=== PATIENT | female | born 1960 | race Caucasian/White ===

== ENCOUNTER 2020-12-06 08:49 | Inpatient (IN) | payer OTHER ==
[~2020-12-06] VITALS: Ht 152.4 cm; Wt 90.3 kg
[2020-12-06 09:23] LABS: HEMOGLOBIN 14.5 gm/dl (12.3-15.3); RED BLOOD COUNT 5.3 M/UL (4.00-5.10); WHITE BLOOD COUNT 14.3 K/UL (4.5-11.0)
[2020-12-06] MEDS ORDERED: BUMETANIDE2 MG PO (13:47)
[2020-12-06] MEDS ORDERED: TOPROL XL 25 MG25 MG PO (13:48)
[2020-12-06] MEDS ORDERED: LANTUS SOL100 UNIT/1 SC (14:41)
--- NOTE | 2020-12-07 04:22 | NUR ---
Pt has had no urinary output during shift. Pt states that they do not feel like they have to pee and refused to try. She said she hadnt been peeing much lately, maybe once a day.
[2020-12-07 05:19] LABS: HEMOGLOBIN 13.4 gm/dl (12.3-15.3); RED BLOOD COUNT 4.91 M/UL (4.00-5.10); WHITE BLOOD COUNT 12.4 K/UL (4.5-11.0)
[2020-12-07 09:14] LABS: HIV SCREEN 4TH GENERATION WRFX Non Reactive (Non Reactive)
[2020-12-07 12:14] LABS: HBSAG SCREEN Negative (Negative); HEP A AB, IGM Negative (Negative); HEP B CORE AB, IGM Negative (Negative); HEP C VIRUS AB 0.3 (0.0-0.9); HEPATITIS B SURF AB QUANT <3.1 mIU/mL (Immunity>9.9)
[2020-12-10 15:11] LABS: A/G RATIO 0.8 (0.7-1.7); ALBUMIN 2.8 g/dL (2.9-4.4); ALPHA-1-GLOBULIN 0.3 g/dL (0.0-0.4); ALPHA-2-GLOBULIN 1.1 g/dL (0.4-1.0); BETA GLOBULIN 1.6 g/dL (0.7-1.3); GAMMA GLOBULIN 0.9 g/dL (0.4-1.8); GLOBULIN, TOTAL 3.8 g/dL (2.2-3.9); IMMUNOGLOBULIN A, QN, SERUM 726 mg/dL (87-352); IMMUNOGLOBULIN G, QN, SERUM 915 mg/dL (586-1602); IMMUNOGLOBULIN M, QN, SERUM 138 mg/dL (26-217); M-SPIKE Not Observed g/dL (Not Observed); PROTEIN, TOTAL, SERUM 6.6 g/dL (6.0-8.5)
--- NOTE | 2020-12-11 16:15 | NUR ---
PATIENT STILL HAVING EPISODES OF VOMITING. PROVIDER MADE AWARE AND STATES THAT SHE WANTS TO KEEP PATIENT OVERNIGHT TO MONITOR.
== END 2020-12-12 16:03 | disposition home or self-care (01) | DRG 682 ==
LOC: ER1 08:49 → MED SURG 4 13:38 → CDU 13:38 → MED SURG 4 20:23
PROVIDERS: Emergency Medicine; Internal Medicine; Internal Medicine Nephrology; Physician Assistant Medical; ADMIT Internal Medicine
PROC: 8E0ZXY6 Isolation (ICD-10-PCS; principal; 2020-12-06)
DX: N17.0 Acute kidney failure with tubular necrosis (principal); U07.1 COVID-19; J12.82 Pneumonia due to coronavirus disease 2019; J96.01 Acute respiratory failure with hypoxia; I13.0 Hypertensive heart and chronic kidney disease with heart failure and stage 1 through stage 4 chronic kidney disease, or unspecified chronic kidney disease; I50.22 Chronic systolic (congestive) heart failure; E87.1 Hypo-osmolality and hyponatremia; E87.4 Mixed disorder of acid-base balance; Q21.1 Atrial septal defect; Z68.41 Body mass index [BMI] 40.0-44.9, adult; E87.8 Other disorders of electrolyte and fluid balance, not elsewhere classified; E27.9 Disorder of adrenal gland, unspecified; I34.0 Nonrheumatic mitral (valve) insufficiency; I25.10 Atherosclerotic heart disease of native coronary artery without angina pectoris; N18.30 Chronic kidney disease, stage 3 unspecified; E11.22 Type 2 diabetes mellitus with diabetic chronic kidney disease; E86.0 Dehydration; I16.0 Hypertensive urgency; E87.5 Hyperkalemia; E11.65 Type 2 diabetes mellitus with hyperglycemia; J45.909 Unspecified asthma, uncomplicated; E66.9 Obesity, unspecified; E83.52 Hypercalcemia; E87.6 Hypokalemia; I25.2 Old myocardial infarction; Z90.710 Acquired absence of both cervix and uterus; Z95.5 Presence of coronary angioplasty implant and graft; Z98.51 Tubal ligation status
CPT/HCPCS: 36415; 36600; 51701; 70450; 71045; 76700; 80048; 80053; 80069; 80074; 81001; 82550; 82553; 82570; 82784; 82803; 82962; 82977; 83605; 83690; 83735; 83874; 83883; 84155; 84156; 84165; 84484; 85025; 85027; 86317; 86334; 87040; 87389; 93005; 96374; 96375; 97161; 99285; J0456; J0696; J1644; J2550; J7030; J7040; U0002